=== PATIENT | female | born 2000 | race African-American/Black ===

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

== ENCOUNTER 2020-08-13 19:35 | Emergency (ER) | payer MEDICAID ==
[~2020-08-13] VITALS: Ht 152.4 cm; Wt 57.2 kg
[~2020-08-13 19:35] MED LIST changes: +BACITRACIN-P28.35 GM TP; +FLUCONAZOLE100 MG ORAL; +IBUPROFEN600 MG ORAL; +ROBAXIN-750750 MG PO
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
[2020-08-13] MEDS ORDERED: Methocarbamol 500mg tab ORAL ONE (20:15)
[2020-08-13] MEDS ORDERED: Ketorolac 30mg Inj IM ONE (20:15)
[2020-08-13 20:26] VITALS: BP 125/82
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
[2020-08-13] MEDS ORDERED: ROBAXIN-750750 MG PO (21:41)
[2020-08-13] MEDS ORDERED: IBUPROFEN600 M1 ORAL (21:41)
== END 2020-08-13 22:26 | disposition home or self-care (01) ==
LOC: EMR 21:10
DX: S29.012A Strain of muscle and tendon of back wall of thorax, initial encounter (principal); V43.62XA Car passenger injured in collision with other type car in traffic accident, initial encounter; Y92.410 Unspecified street and highway as the place of occurrence of the external cause; R42 Dizziness and giddiness
CPT/HCPCS: 70450; 72128; 96372; J1885; Z7502; 99284